=== PATIENT | male | born 1935 | race Caucasian/White ===

== ENCOUNTER → 2018-04-27 | Outpatient (CLI) | payer MEDICARE ==
--- NOTE | 2018-04-27 09:45 | US ---
EXAMINATION TYPE: US kidneys/renal and bladder DATE OF EXAM: 04/27/2018 COMPARISON: NONE CLINICAL HISTORY: R31.9 Hematuria. 1 episode of hematuria couple weeks ago, prostate removed 10 years ago due to high PSA per patient. EXAM MEASUREMENTS: Right Kidney: 10.8 x 5.6 x 4.5 cm Left Kidney: 11.0 x 5.6 x 4.8 cm Post Void Residual Volume: 251.6 mL Difficult and limited study due to rib shadowing and overlying bowel gas Right Kidney: no hydronephrosis or renal masses seen Left Kidney: 1.6 x 1.7 x 2.1cm hypoechoic area lateral mid pole, no hydronephrosis seen Bladder: wnl Bilateral Jets seen: yes Normal Post Void Residual: no The initial images show 2 mobile gallstones within gallbladder. Right kidney shows some loss of [place] l cortical medullary differentiation. No hydronephrosis is seen. Left kidney shows also poor cortical medullary differentiation. There is 2.1 cm oval hypoechoic anechoic lesion with increased through tr ansmission felt to reflect simple cyst laterally mid pole level left kidney. Bladder is unremarkable without bilateral distal ureter jets seen. IMPRESSION: No hydronephrosis is evident bilaterally. No significant finding is seen to account for patient's sym ptoms of hematuria. Evidence of chronic medical renal disease. Consider CT urogram if symptoms persis t. Incidental gallstones.
== END ==
LOC: RADUSWWP 08:06
PROVIDERS: ATTEND Internal Medicine Geriatric Medicine
DX: N28.9 Disorder of kidney and ureter, unspecified (principal); K80.20 Calculus of gallbladder without cholecystitis without obstruction
CPT/HCPCS: 76770

== ENCOUNTER 2018-11-21 10:55 | Emergency (ER) | payer MEDICARE ==
[2018-11-21] MEDS ORDERED: AZITHROMYCIN 500 MG TAB PO STA (11:40)
[2018-11-21] MEDS ORDERED: LORATADINE-PSEUDOEPH 5-120 MG 1 EACH TAB.ER.12H PO STA (11:40)
--- NOTE | 2018-11-21 11:41 | ED ---
URI HPI - General Chief Complaint: Upper Respiratory Infection Stated Complaint: EARS CRACKING, COLD SYMPTOMS Time Seen by Provider: 11/21/18 11:28 Source: patient, RN notes reviewed, old records reviewed Mode of arrival: ambulatory Limitations: no limitations - History of Present Illness Initial Comments: This is a 3-year-old male to the ER for evaluation presented for evaluation regarding cough and congestion. Congestion and ear nose drainage going on for about a week. No improvement of [id number] medications. Patient denies significant chest pain or shortness of breath, denies any other sick contacts or illnesses, no travel history or sick contacts. MD Complaint: cough -: hour(s) Severity: mild Severity scale (1-10): 3 Quality: aching Consistency: constant Improves With: nothing Worsens With: nothing Context: other (None) Associated Symptoms: denies other symptoms Treatments Prior to Arrival: none - Related Data Home Medications Medication Instructions Recorded Confirmed Naproxen Sodium [Aleve] 220 mg PO DAILY PRN 11/21/18 11/21/18 Temazepam [Restoril] 15 mg PO HS PRN 11/21/18 11/21/18 Previous Rx's Medication Instructions Recorded Azithromycin [Zithromax Z-pack] 0 mg PO DIRECTED #1 pack 11/21/18 Allergies Allergy/AdvReac Type Severity Reaction Status Date / Time No Known Allergies Allergy Verified 11/21/18 11:59 Review of Systems ROS Statement: Those systems with pertinent positive or pertinent negative responses have been documented in the HPI. ROS Other: All systems not noted in ROS Statement are negative. Past Medical History Past Medical History: Cancer, Prostate Disorder Additional Past Medical History / Comment(s): prostate cancer- prostate removed and patient states he is clear now History of Any Multi-Drug Resistant Organisms: None Reported Past Surgical History: Hernia Repair Additional Past Surgical History / Comment(s): prostate removal, lung drained as a child Past Psychological History: No Psychological Hx Reported Smoking Status: Never smoker Past Alcohol Use History: Occasional Past Drug Use History: None Reported General Exam Limitations: no limitations General appearance: alert, in no apparent distress Head exam: Present: atraumatic, normocephalic, normal inspection Eye exam: Present: normal appearance, PERRL, EOMI. Absent: scleral icterus, conjunctival injection, periorbital swelling ENT exam: Present: normal exam, mucous membranes moist Neck exam: Present: normal inspection. Absent: tenderness, meningismus, lymphadenopathy Respiratory exam: Present: normal lung sounds bilaterally. Absent: respiratory distress, wheezes, rales, rhonchi, stridor Cardiovascular Exam: Present: regular rate, normal rhythm, normal heart sounds. Absent: systolic murmur, diastolic murmur, rubs, gallop, clicks GI/Abdominal exam: Present: soft, normal bowel sounds. Absent: distended, tenderness, guarding, rebound, rigid Extremities exam: Present: normal inspection, full ROM, normal capillary refill. Absent: tenderness, pedal edema, joint swelling, calf tenderness Back exam: Present: normal inspection Neurological exam: Present: alert, oriented X3, CN II-XII intact Psychiatric exam: Present: normal affect, normal mood Skin exam: Present: warm, dry, intact, normal color. Absent: rash Course Vital Signs 11/21/18 11/21/18 11/21/18 11:13 12:38 12:48 Temperature 98 F Pulse Rate 75 75 75 Respiratory 18 Rate Blood Pressure 150/85 O2 Sat by Pulse 98 Oximetry 11/21/18 13:04 Temperature 97.8 F Pulse Rate 78 Respiratory 20 Rate Blood Pressure 146/79 O2 Sat by Pulse 99 Oximetry Medical Decision Making - Medical Decision Making 83 male the ER with acute breast for infection, sinusitis. Patient will place on antibiotics and discharged home - Radiology Data Radiology results: report reviewed (Chest x-rays negative for acute disease), image reviewed Disposition Clinical Impression: Upper respiratory infection, Bronchitis, Sinusitis Disposition: HOME SELF-CARE Condition: Good Instructions: Upper Respiratory Infection (ED) Prescriptions: Azithromycin [Zithromax Z-pack] 0 mg PO DIRECTED #1 pack Is patient prescribed a controlled substance at d/c from ED?: No Referrals: Francisco Samuel MD [Primary Care Provider] - 1-2 days
[2018-11-21] MEDS: IPRATROPIUM-ALBUTEROL 3 ML NEB INHALATION STA ×2 (11:52→12:37)
--- NOTE | 2018-11-21 12:47 | XR ---
EXAMINATION TYPE: XR chest 2V DATE OF EXAM: 11/21/2018 COMPARISON: NONE HISTORY: Cough and congestion. Upper respiratory infection. TECHNIQUE: Frontal and lateral views of the chest are obtained. FINDINGS: There is no focal air space opacity, pleural effusion, or pneumothorax seen. The cardiac silhouette size is within normal limits. The osseous structures are intact. IMPRESSION: No suspicious acute pulmonary process.
[2018-11-21 13:06] VITALS: BP 146/79; PULSE 78; RESP 20; TEMP 97.8
== END 2018-11-21 13:05 | disposition home or self-care (01) ==
LOC: EC 10:55
DX: J40 Bronchitis, not specified as acute or chronic (principal); J06.9 Acute upper respiratory infection, unspecified; J32.9 Chronic sinusitis, unspecified; H93.8X9 Other specified disorders of ear, unspecified ear; Z85.46 Personal history of malignant neoplasm of prostate; Z90.79 Acquired absence of other genital organ(s)
CPT/HCPCS: 71046; 94640; 99284